=== PATIENT | male | born 1950 | race Caucasian/White ===

== ENCOUNTER → 2024-05-10 | Outpatient (CLI) | payer BC ==
[2024-05-10 17:31] LABS: INR 1.2 (<1.2); Partial Thromboplastin Time 25.1 sec (22.0-30.0); Prothrombin Time 12.7 sec (10.0-12.5)
[2024-05-10 20:40] LABS: HGB 14.1 g/dL (13.0-17.0); MCH 30.7 pg (27.0-32.0); MCHC 33.6 g/dL (32.0-37.0); MCV 91.3 FL (80.0-97.0); Mean Platelet Volume 11.3 FL (9.5-12.2); NRBC Per 100 WBC 0.03 X 10*3/uL (0.00-0.01); Platelet Count 155 X 10*3/uL (140-440); RDW 13.3 % (11.5-14.5); WBC 8.27 X 10*3/uL (4.50-10.00)
[2024-05-10 21:07] LABS: ALT 25 U/L (10-49); AST 28 U/L (14-35); Albumin 4.3 g/dL (3.8-4.9); Albumin/Globulin Ratio 1.87 Ratio (1.60-3.17); Alkaline Phosphatase 104 U/L (41-126); Blood Urea Nitrogen 22.5 mg/dL (9.0-27.0); Calcium 9.3 mg/dL (8.7-10.3); Carbon Dioxide 27.3 mmol/L (21.6-31.8); Chloride 105 mmol/L (96-109); Globulin 2.3 g/dL (1.6-3.3); Glucose 130 mg/dL (70-110); Potassium 4.7 mmol/L (3.5-5.5); Sodium 140 mmol/L (135-145); Total Bilirubin 0.3 mg/dL (0.3-1.2); Total Protein 6.6 g/dL (6.2-8.2)
[2024-05-10 21:09] LABS: Basophils # (M) 0.08 X 10*3/uL (0.00-0.10); Eosinophils # (M) 0.08 X 10*3/uL (0.04-0.35); Monocytes # (M) 0.17 X 10*3/uL (0.20-1.00); Neutrophils # (M) 1.74 X 10*3/uL (1.80-7.70); Neutrophils % (M) 21 %; RBC Morphology Normal (Normal)
== END | disposition home or self-care (01) ==
LOC: LABPAT 16:21
PROVIDERS: ATTEND Orthopaedic Surgery
DX: Z01.812 Encounter for preprocedural laboratory examination (principal); M17.12 Unilateral primary osteoarthritis, left knee; Z22.322 Carrier or suspected carrier of Methicillin resistant Staphylococcus aureus
CPT/HCPCS: 80053; 83036; 85025; 85610; 85730

== ENCOUNTER 2024-06-04 11:12 | Day surgery (SDC) | payer MEDICARE ==
[2024-05-28 14:16] VITALS: BMI 24.3
[~2024-06-04 11:12] MED LIST: HYDROmorphone 0.5 MG/0.5 ML SYRINGE IVP PRN; TRANEXAMIC 1,000 MG/100ML-NACL 1,000 MG in SALINE 1 100ML.BAG IV PRN; TRANEXAMIC 1,000 MG/100ML-NACL 1,000 MG in SALINE 1 100ML.BAG IVPB PRN
[2024-06-04] MEDS: ACETAMINOPHEN TAB 500 MG TAB PO PRN (11:58)
[2024-06-04] MEDS: DOCUSATE 100 MG CAP PO PRN (11:58)
[2024-06-04] MEDS: oxyCODONE ER 10 MG TAB.ER.12H PO PRN (11:58)
[2024-06-04] MEDS: LACTATED RINGERS 1,000 ML IV SCH (11:58)
[2024-06-04] MEDS: DEXAMETHASONE SOD PHOSPHATE 10 MG/ML 1 ML VIAL IV PRN (11:59)
[2024-06-04] MEDS: KETOROLAC 15 MG/ML 1 ML VIAL IVP PRN (11:59)
[2024-06-04] MEDS: FAMOTIDINE 20 MG/2 ML VIAL IVP PRN (11:59)
[2024-06-04] MEDS: ONDANSETRON 4 MG/2 ML VIAL IVP PRN (11:59)
[2024-06-04] MEDS: IV FLUID CONTINUATION 1,000 ML IV ONE (12:00)
[2024-06-04] MEDS: MIDAZOLAM 2 MG/2 ML VIAL IV PRN (12:22)
--- NOTE | 2024-06-04 12:33 | P.ANPRN ---
Procedure Note - Anesthesia - Nerve Block Performed Left Adductor Canal Single Time Out Performed: Yes Date of Procedure: 06/04/24 Procedure Start Time: : Procedure Stop Time: Location of Patient: PreOp Indication: Acute Post-Operative Pain, Requested by Surgeon Sedation Type: Sedate with meaningful contact maintained Preparation: Sterile Prep Position: Supine Needle Types: Pajunk Needle Gauge: 21 Ultrasound used to visualize needle placement: Yes Ultrasound used to observe medication spread: Yes Blood Aspirated: No Pain Paresthesia on Injection Noted: No Resistance on Injection: Normal Image Stored and Saved: Yes Events: Uneventful and Well Tolerated (Ropivacaine 0.5% 20 cc plus dexamethasone 4 mg)
--- NOTE | 2024-06-04 12:34 | P.ANPRN ---
Procedure Note - Anesthesia - Nerve Block Performed Left iPack Single Time Out Performed: Yes Date of Procedure: 06/04/24 Procedure Start Time: Procedure Stop Time: Location of Patient: PreOp Indication: Acute Post-Operative Pain, Requested by Surgeon Sedation Type: Sedate with meaningful contact maintained Preparation: Sterile Prep Position: Supine Needle Types: Pajunk Needle Gauge: 21 Ultrasound used to visualize needle placement: Yes Ultrasound used to observe medication spread: Yes Blood Aspirated: No Pain Paresthesia on Injection Noted: No Resistance on Injection: Normal Image Stored and Saved: Yes Events: Uneventful and Well Tolerated (Ropivacaine 0.5% 20 cc plus dexamethasone 4 mg)
[2024-06-04] MEDS ORDERED: fentaNYL (PF) 50 MCG/ML 2 ML AMP ONE (12:42)
[2024-06-04] MEDS ORDERED: ePHEDrine 50 MG/ML 1 ML VIAL ONE (12:42)
[2024-06-04] MEDS ORDERED: PROPOFOL 10 MG/ML 20 ML VIAL IV ONE (12:42)
[2024-06-04] MEDS ORDERED: ROPIVACAINE 5 MG/ML 30 ML VIAL ONE (12:42)
[2024-06-04] MEDS ORDERED: DEXAMETHASONE SOD PHOSPHATE 4 MG/ML 1 ML VIAL ONE (12:42)
[2024-06-04] MEDS ORDERED: LIDOCAINE 1% INJ 10MG/ML (20 ML MDV) ONE (12:42)
[2024-06-04] MEDS ORDERED: ROCURONIUM 10 MG/ML (5 ML VIAL) IV ONE (12:42)
[2024-06-04] MEDS ORDERED: TRANEXAMIC 1,000 MG/100ML-NACL PREMIX BAG ONE (12:42)
[2024-06-04] MEDS ORDERED: SUCCINYLCHOLINE CHLORIDE 200 MG/10 ML VIAL IV ONE (12:42)
[2024-06-04] MEDS: ROPIVACAINE/EPI/CLONIDINE/KET 50 ML SYRINGE MISCELLANE PRN (13:19)
[2024-06-04] MEDS: LACTATED RINGERS 1,000 ML IV ONE (13:47)
--- NOTE | 2024-06-04 14:34 | P.OP ---
Date of Procedure: 06/04/24 Preoperative Diagnosis: severe left knee osteoarthritis Postoperative Diagnosis: Same Procedure(s) Performed: 1. Left total knee arthroplasty 2. Computer assisted musculoskeletal navigation using CT/MRI images Implants: 1. [employer] Tri[employer] CR/PS Femur Size #6 2. [place] Tri[employer]lon Lee Tibial Base Size #5 3. [employer] Tri[employer]lon CS poly Size #9 4. [employer] Triathlon all poly patella, Size #35 Anesthesia: OZIELA, regional Surgeon: Milo Umanzor Mixer And Blender #1: Barber Vallejo Estimated Blood Loss (ml): 100 IV fluids (ml): 800 Pathology: none sent Condition: stable Disposition: PACU Indications for Procedure: I met with the patient preoperatively in the office setting and discussed treatment of their symptomatic knee arthritis. They failed a long course of nonsurgical treatment and elected to proceed with an elective total knee replacement. I discussed the potential risks and complications at length and gave them ample time to ask questions. Risks discussed included: risks from anesthesia, superficial site surgical infection, acute and/or chronic periprosthetic joint infection, delayed wound healing, drainage, wound necrosis, instability, stiffness, stiffness requiring manipulation and/or revision surgery, damage to local blood vessels or nerves, aseptic loosening of the implants, extensor mechanism issues including disruption, patellar maltracking, avascular necrosis etc., continued or worsened knee pain, generalized dissatisfaction with surgical outcome, need for revision surgery, an inability to regain preinjury level of function, DVT, PE, other medical complications, and possibly loss of life or limb. The patient voiced their understanding that while these are the most common complications other less common complications are possible. They provided both their verbal and written consent to go forward with surgery. Operative Findings: Severe medial compartment arthritis, moderate lateral and patellofemoral arthritis Description of Procedure: The patient was identified in preoperative holding and the correct operative extremity was verified and marked with a marker. I reviewed the consent form with the patient at length. All of their questions were answered. The patient was given a block by anesthesia. They were then brought back to the operating room. They were transferred onto the operating room table where a general anesthetic, preoperative antibiotics, and tranexamic acid were administered by anesthesia. A tourniquet was applied to the proximal aspect of the operative extremity. The contralateral extremity was padded under the heel and secured to the operating room table with a nonsterile blue towel and tape. The ipsilateral arm was carefully draped across the patient's chest and secured with a pillow and foam. A post was applied over the lateral aspect of the ipsilateral thigh and a bolster was placed under the ipsilateral foot. I verified that the operative extremity was stable and the knee was flexed to 90. The operative extremity was then placed in a leg gao, nonsterile drapes were applied, and the extremity was prepped and draped sterilely in the standard sterile fashion. Prior to starting surgery timeout was performed identifying the correct patient, operative extremity, and procedure. The leg was then elevated, exsanguinated with an Esmarch bandage, and the tourniquet was inflated. An anterior midline incision was made sharply with a scalpel. Once I had dissected deep to the superficial fascial layer medial and lateral flaps were elevated. A medial parapatellar arthrotomy was created. Upon opening the knee joint there were diffuse arthritic changes in all 3 compartments. The anterior horn of the medial meniscus were sharply released and a medial release was performed around the posterior medial corner of the knee to facilitate retractor placement. The fat pad was excised with electrocautery. The patella was found to be severely arthritic and a provisional cut was made with a sagittal saw to facilitate mobilization of the extensor mechanism during the procedure. Remnants of the ACL and PCL were then excised from the notch. 4 mm pins were then placed within the incision in the medial distal femur and proximal tibia. Arrays were applied to the pins and I verified they were completely tightened. The knee was then registered with the Dole Tian robot and manipulations in implant position were made to balance the knee and opitmize implant position. Using the Patrice robotic saw all cuts were made in accordance with our plan. After all bony fragments had been removed the cuts were verified with the planar probe. The tibia was then subluxed forward and sized. The knee was brought into flexion and a lamina archaeology professor was placed to allow removal of the meniscal remnants both medially and laterally as well as posterior osteophytes. Local anesthetic was then infiltrated around the joint capsule. Trial implants were then placed w ithin the knee. Range of motion and collateral ligament tension was then evaluated. Adjustments in implant size and position were then made accordingly. Once the knee was felt to be appropriately balanced the Patrice pins were removed. The patella was then recut, sized, and punched. A trial patellar button was then placed. With the trial components in place, the patella tracked midline. The femur was then drilled and the trial component removed. The trial tibial component was then appropriately rotated, pinned, and prepared for the keel. All trial components were then removed from the knee. The knee was thoroughly irrigated with pulsatile lavage. Cement was prepared via vacuum mixing in a bowl on the back table. I then hand pressurized cement into the femur and tibia and placed the implants beginning with the tibial base tray and poly liner, femoral component, and finally the patellar button. All extruded cement was removed including from the pin sites. Once the cement had hardened the knee was evaluated one final time with the final polyethylene liner in place. The knee had full extension and flexion and felt stable to varus and valgus stress throughout the arc of motion. The tourniquet was released and with the tourniquet down the patella tracked midline. All bleeders were controlled with electrocautery. The knee was then soaked for 3 minutes with a dilute Betadine soak. The knee was thoroughly irrigated using 3 L of sterile saline and pulsatile lavage. The extensor mechanism was then reapproximated using pop off Vicryl sutures followed by a running barbed suture. The knee was then closed in layers with a 0 strata fix for the deep fascial layer, 2-0 strata fix for the superficial subcutaneous layer and Monocryl and Steri-Strips for the skin. A sterile dressing was applied. I verified that all instrument, sponge, and sharp counts were correct. The patient was then transferred off the operating room table, extubated, and brought to recovery having tolerated the procedure well. Barber Vallejo PA-C was required as a skilled certified physical therapist assistant for patient positioning, draping, exposure, retraction, closure of wound and application of dressing PLAN: The patient can weight-bear as tolerated on the operative extremity. DVT prophylaxis with aspirin 81 mg twice a day based on preoperative risk stratification. Internal medicine for perioperative medical management. 2 doses of post-operative antibiotics. Physical therapy for gait training. Follow-up in the office in 2 weeks for wound check and x-rays of the knee including an AP and lateral.
[2024-06-04] MEDS ORDERED: bisacodyL 10 MG SUPP RECTAL PRN (14:37)
[2024-06-04] MEDS ORDERED: NALOXONE 0.4 MG/ML 1 ML VIAL IV PRN (14:37)
[2024-06-04] MEDS ORDERED: ONDANSETRON 4 MG/2 ML VIAL IVP PRN (14:37)
[2024-06-04] MEDS ORDERED: MAGNESIUM HYDROXIDE 2,400 MG/30 ML CUP PO PRN (14:37)
[2024-06-04] MEDS ORDERED: HYDROcodone/APAP 10-325MG 1 EACH TAB PO PRN (14:37)
[2024-06-04] MEDS ORDERED: HYDROmorphone 0.5 MG/0.5 ML SYRINGE IVP PRN (14:37)
[2024-06-04] MEDS: SODIUM CHLORIDE 0.9% 1,000 ML IV SCH (15:27)
--- NOTE | 2024-06-04 15:28 | XR ---
EXAMINATION TYPE: XR knee limited LT DATE OF EXAM: 06/04/2024 3:13 PM CLINICAL INDICATION: Male, 73 years old with history of Evaluation for Postop abnormality and alignme nt; [facility] COMPARISON: None. TECHNIQUE: XR knee limited LT; examined in Frontal, lateral projections. FINDINGS: Status post total knee arthroplasty changes with hardware in appropriate alignment and in tact. No evidence of fracture. Subcutaneous lucencies and lucencies within the joint consistent with surgical changes. IMPRESSION: Status post total knee arthroplasty changes with hardware intact and appropriate alignment. No fractu res identified. [facility], , 06/04/2024 3:25 PM
[2024-06-04] MEDS: ASPIRIN 81 MG PO SCH (21:13)
[2024-06-04] MEDS: SENNOSIDES-DOCUSATE SODIUM 1 EACH TAB PO SCH (21:13)
[2024-06-05 03:17] VITALS: TEMP 97.6
[2024-06-05 07:43] VITALS: BP 133/80; PULSE 75; RESP 17
[2024-06-05] MEDS: HYDROcodone/APAP 5-325MG 1 EACH TAB PO PRN (08:25)
--- NOTE | 2024-06-05 08:32 | P.DS ---
Providers Date of admission: 06/04/2024 Attending physician: Milo Umanzor Consults: 06/04/24 14:37 Consult Physician Routine Consulting Provider: Ninfa Rodas Consult Reason/Comments: post op medical management Do you want consulting provider notified?: Yes Primary care physician: [facility] Course: the patient was admitted yesterday and underwent an uncomplicated total knee replacement. Following surgery he was transferred to the orthopedic floor. He received 2 doses of postoperative antibiotics. He was transitioned from IV to oral pain medication. Internal medicine was consulted. I evaluate the patient in postoperative day #1 he was doing well. His pain was controlled. The dressing over her knee is intact. His thigh and calf are soft and compressible. Femoral nerve function was intact. He was able to actively plantar flex and dorsiflex ankle and his toes. He worked with physical therapy and did well. He was ultimately cleared for discharge home. Patient Condition at Discharge: Good Plan - Discharge Summary Discharge Rx Participant: No New Discharge Prescriptions: New Docusate [Colace] 100 mg PO BID #60 capsule HYDROcodone/APAP 5-325MG [Dudley 5-325] 1 - 2 tab PO Q6HR PRN #56 tab PRN Reason: Pain Omeprazole 40 mg PO DAILY #30 cap Aspirin 81 mg PO BID #60 tab Diclofenac Sodium [Voltaren] 75 mg PO BID #60 tab No Action Losartan [Cozaar] 25 mg PO HS Discharge Medication List Losartan [Cozaar] 25 mg PO HS 05/28/24 [History] Aspirin 81 mg PO BID #60 tab 06/05/24 [Rx] Diclofenac Sodium [Voltaren] 75 mg PO BID #60 tab 06/05/24 [Rx] Docusate [Colace] 100 mg PO BID #60 capsule 06/05/24 [Rx] HYDROcodone/APAP 5-325MG [[place]udley 5-325] 1 - 2 tab PO Q6HR PRN #56 tab 06/05/24 [Rx] Omeprazole 40 mg PO DAILY #30 cap 06/05/24 [Rx] Follow up Appointment(s)/Referral(s): Milo Umanzor MD [Medical Doctor] - 2 Weeks Activity/Diet/Wound Care/Special Instructions: 1. Weight-bear as tolerated on your operative extremity unless instructed otherwise. Use a walker or other assistive device to ambulate. 2. Leave surgical dressing in place. If your dressing becomes saturated with blood, there is drainage, or the dressing becomes loose please contact the office. 3. It is okay to shower with your surgical dressing, but do not submerge in water (no hot tubs, bath's, swimming etc.) 4. Make sure to take her blood clot prevention medication as prescribed (aspirin, Eliquis, Xarelto, and Plavix are commonly prescribed medications for blood clot prevention) 5. While taking Dudley or Percocet for pain make sure you're taking a stool softener (Colace) and drink lots of water. 6. Keep all follow-up appointments as scheduled. You will usually be seen in 1-2 weeks following surgery. 7. Please contact the office with any questions or concerns [phone] Discharge Disposition: HOME WITH HOME HEALTH SERVICES
[2024-06-05 10:20] LABS: Basophils # (A) 0.01 X 10*3/uL (0.00-0.10); Basophils % (A) 0.1 %; Eosinophils # (A) 0 X 10*3/uL (0.04-0.35); Eosinophils % (A) 0 %; HCT 38.1 % (39.6-50.0); HGB 12.7 g/dL (13.0-17.0); Lymphocytes % (A) 27.3 %; MCH 29.7 pg (27.0-32.0); MCHC 33.3 g/dL (32.0-37.0); Mean Platelet Volume 11.2 FL (9.5-12.2); Monocytes # (A) 0.36 X 10*3/uL (0.20-1.00); Monocytes % (A) 2.9 %; NRBC Per 100 WBC 0 X 10*3/uL (0.00-0.01); Neutrophils # (A) 8.63 X 10*3/uL (1.80-7.70); Neutrophils % (A) 69.4 %; Platelet Count 133 X 10*3/uL (140-440); RBC 4.28 X 10*6/uL (4.40-5.60); RDW 13.7 % (11.5-14.5); WBC 12.44 X 10*3/uL (4.50-10.00)
--- NOTE | 2024-06-05 14:06 | P.CONS ---
History of Present Illness - Reason for Consult Consult date: 06/05/24 Medical management - History of Present Illness History of present illness; patient is a 73-year-old gentleman with past medical history significant for hypertension who presented to the hospital for elective left total knee arthroplasty. Patient was being seen outpatient by orthopedic surgery for left knee pain, patient had failed all nonsurgical treatment options. Patient was scheduled for left knee arthroplasty on 06/04. Postoperatively internal medicine team were consulted knee arthroplasty. REVIEW OF SYSTEMS: CONSTITUTIONAL: No fever, no malaise, no fatigue. HEENT: No recent visual problems or hearing problems. Denied any sore throat. CARDIOVASCULAR: No chest pain, orthopnea, PND, no palpitations, no syncope. PULMONARY: No shortness of breath, no cough, no hemoptysis. GASTROINTESTINAL: No diarrhea, no nausea, no vomiting, no abdominal pain. NEUROLOGICAL: No headaches, no weakness, no numbness. HEMATOLOGICAL: Denies any bleeding or petechiae. GENITOURINARY: Denies any burning micturition, frequency, or urgency. MUSCULOSKELETAL/RHEUMATOLOGICAL: Left knee pain ENDOCRINE: Denies any polyuria or polydipsia. The rest of the 14-point review of systems is negative. PHYSICAL EXAMINATION: GENERAL: The patient is alert and oriented x3, not in any acute distress. Well developed, well nourished. HEENT: Pupils are round and equally reacting to light. EOMI. No scleral icterus. No conjunctival pallor. Normocephalic, atraumatic. No pharyngeal erythema. No thyromegaly. CARDIOVASCULAR: S1 and S2 present. No murmurs, rubs, or gallops. PULMONARY: Chest is clear to auscultation, no wheezing or crackles. ABDOMEN: Soft, nontender, nondistended, normoactive bowel sounds. No palpable organomegaly. MUSCULOSKELETAL: Left knee surgical incision seen EXTREMITIES: No cyanosis, clubbing, or pedal edema. NEUROLOGICAL: Gross neurological examination did not reveal any focal deficits. SKIN: No rashes. Assessment and plan Severe left total knee osteoarthritis status post left total knee arthroplasty Hypertension Monitor vital signs Monitor CBC Monitor CMP Continue pain management per orthopedics Continue DVT prophylaxis per orthopedics Resume home meds PT and OT consulted Labs and medication were reviewed.. Continue same treatment. Continue with symptomatic treatment. Resume home medication. Monitor labs and vitals. DVT and GI prophylaxis. Further recommendations as per clinical course of the patient Dictation was produced using Gient dictation software. please excuse any grammatical, word or spelling errors. Past Medical History Past Medical History: Hypertension Additional Past Medical History / Comment(s): Bone on bone left knee. History of Any Multi-Drug Resistant Organisms: None Reported Past Surgical History: Orthopedic Surgery, Tonsillectomy Additional Past Surgical History / Comment(s): Left knee arthroscopy, upper and lower tooth implant. Past Anesthesia/Blood Transfusion Reactions: No Reported Reaction Past Psychological History: No Psychological Hx Reported Smoking Status: Never smoker Past Alcohol Use History: Occasional Past Drug Use History: None Reported - Past Family History Sister(s) Family Medical History: Cancer Additional Family Medical History / Comment(s): Breast cancer. Medications and Allergies Home Medications Medication Instructions Recorded Confirmed Type Losartan [Cozaar] 25 mg PO HS 05/28/24 06/04/24 History Aspirin 81 mg PO BID #60 tab 06/05/24 Rx Diclofenac Sodium [Voltaren] 75 mg PO BID #60 tab 06/05/24 Rx Docusate [Colace] 100 mg PO BID #60 capsule 06/05/24 Rx HYDROcodone/APAP 5-325MG [[place] 1 - 2 tab PO Q6HR PRN #56 tab 06/05/24 Rx 5-325] Omeprazole 40 mg PO DAILY #30 cap 06/05/24 Rx Allergies Allergy/AdvReac Type Severity Reaction Status Date / Time No Known Allergies Allergy Verified 06/04/24 11:28 Physical Exam Vitals: Vital Signs Temp Pulse Pulse Resp BP BP Pulse Ox 06/05/24 06:55 97.6 F 75 17 133/80 95 06/05/24 02:00 97.6 F 74 128/75 95 06/04/24 20:00 97.4 F L 80 129/83 94 L 06/04/24 17:35 83 131/85 94 L 06/04/24 17:25 91 137/96 92 L 06/04/24 17:05 93 142/76 92 L 06/04/24 16:55 74 131/81 93 L 06/04/24 16:35 97.6 F 78 134/82 95 06/04/24 15:42 78 16 132/72 94 L 06/04/24 15:28 88 14 133/73 95 06/04/24 15:19 88 16 106/55 95 06/04/24 15:05 96 16 131/70 99 06/04/24 14:52 98.7 F 92 16 135/69 99 06/04/24 12:28 63 16 153/75 99 06/04/24 11:36 97.2 F L 78 16 163/95 98 Intake and Output 06/04/24 06/05/24 06/05/24 22:59 06:59 14:59 Intake Total 400 Output Total 500 Balance 400 -500 Intake: Oral 400 Output: Urine 500 Other: # Voids 1 Weight 71.6 kg Results CBC & Chem 7: 06/05/24 02:56 Labs: Abnormal Lab Results - Last 24 Hours (Table) 06/05/24 Range/Units 02:56 WBC 12.44 H (4.50-10.00) X 10*3/uL RBC 4.28 L (4.40-5.60) X 10*6/uL Hgb 12.7 L (13.0-17.0) g/dL Hct 38.1 L (39.6-50.0) % Plt Count 133 L (140-440) X 10*3/uL Neutrophils # 8.63 H (1.80-7.70) X 10*3/uL Eosinophils # 0 L (0.04-0.35) X 10*3/uL
[2024-06-05] MEDS ORDERED: LOSARTAN 25 MG TAB PO SCH (21:00)
== END 2024-06-05 12:41 | disposition home health service (06) ==
LOC: OR 11:12 → 4SSUR 15:03 → OR 06-05 12:41
PROVIDERS: ATTEND Orthopaedic Surgery
CPT/HCPCS: 64447; 64999; 85025